=== PATIENT | female | born 1970 | race Caucasian/White ===

== ENCOUNTER 2016-09-24 12:43 | Emergency (ER) | payer OTHER, SELFPAY ==
[2016-09-24 12:50] VITALS: BP 117/85; PULSE 87; RESP 18; TEMP 98; O2SAT 99
[2016-09-24] MEDS ORDERED: Sodium Chloride 0.9% 1,000 ML IV STA (13:23)
--- NOTE | 2016-09-24 13:30 | ED PDOC ---
HPI: Abdomen Time Seen by Provider: 09/24/16 13:05 Chief Complaint (Nursing): GI Problem Chief Complaint (Provider): ABDOMINAL PAIN History Per: Patient (46 Y/O FEMALE WITH LOWER ABDOMINAL PAIN ASSOCIATED WITH CONSTIPATION YESTERDAY. NO VOMITING/DIARRHEA/FEVERS/CHILLS. NO H/O ABDOMINAL SURGERIES. NO VOMITING. HAS HAD ADDITIONAL EYE DISCHARGE NOTED IN RIGHT EYE AND THEN LEFT EYE SINCE THIS MORNING. ) Past Medical History Reviewed: Historical Data, Nursing Documentation, Vital Signs Vital Signs: Last Vital Signs Temp 98 F 09/24/16 12:46 Pulse 87 09/24/16 12:46 Resp 18 09/24/16 12:46 BP 117/85 09/24/16 12:46 Pulse Ox 99 09/24/16 13:31 - Medical History PMH: Asthma, Diabetes - Family History Family History: States: No Known Family Hx - Home Medications Home Medications: Ambulatory Orders Medication Instructions Recorded Albuterol HFA [Ventolin HFA 90 2 puff IH [id number] PRN #60 puff 06/14/15 mcg/actuation (8 g)] Prednisone 40 mg PO DAILY 3 Days 06/14/15 Ibuprofen [Motrin] 600 mg PO Q6 #20 tab 09/12/15 Oseltamivir [Tamiflu] 75 mg PO BID 5 Days 09/12/15 Docusate [Colace] 100 mg PO BID #20 cap 09/24/16 Phosphate Enema [Fleet Enema 135 135 ml RC ONCE PRN #1 nma 09/24/16 Ml] Polymyxin/Trimethoprim Sulfate 1 drop BOTHEYES Q3 #1 bottle 09/24/16 [Polytrim Ophth Soln] - Allergies Allergies/Adverse Reactions: Allergies Allergy/AdvReac Type Severity Reaction Status Date / Time No Known Allergies Allergy Verified 09/12/15 15:55 Review of Systems ROS Statement: Except As Marked, All Systems Reviewed And Found Negative Eyes: Positive for: Other (EYE DISCHARGE) Gastrointestinal: Positive for: Abdominal Pain, Constipation Physical Exam - Reviewed Nursing Documentation Reviewed: Yes Vital Signs Reviewed: Yes - Physical Exam Appears: Positive for: Well, Non-toxic, No Acute Distress Head Exam: Positive for: ATRAUMATIC, NORMAL INSPECTION, NORMOCEPHALIC Skin: Positive for: Normal Color, Warm, DRY Eye Exam: Positive for: EOMI, Normal appearance, PERRL ENT: Positive for: Normal ENT Inspection Neck: Positive for: Normal, Painless ROM Cardiovascular/Chest: Positive for: Regular Rate, Rhythm Respiratory: Positive for: CNT, Normal Breath Sounds Gastrointestinal/Abdominal: Positive for: Normal Exam, Bowel Sounds, Soft, Tenderness (MINIMAL TENDERNESS NOTED PERIUMBILICAL. ) Back: Positive for: Normal Inspection Extremity: Positive for: Normal ROM Neurologic/Psych: Positive for: Alert, Oriented - Laboratory Results Result Diagrams: 09/24/16 13:46 09/24/16 13:46 Urine POC: Negative - ECG O2 Sat by Pulse Oximetry: 99 - Progress ED Course And Treament: OBSTRUCTIVE SERIES: MODERATE CONSTIPATION Disposition - Clinical Impression Clinical Impression: Constipation - Patient ED Disposition Is Patient to be Admitted: No - Disposition Referrals: Fredy Higgins MD [Staff Provider] - Disposition: Routine/Home Disposition Time: 15:32 Condition: FAIR Prescriptions: Docusate [Colace] 100 mg PO BID #20 cap Phosphate Enema [Fleet Enema 135 Ml] 135 ml RC ONCE PRN #1 nma PRN Reason: Constipation Polymyxin/Trimethoprim Sulfate [Polytrim Ophth Soln] 1 drop BOTHEYES Q3 #1 bottle Instructions: Conjunctivitis (ED), Constipation (DC), High Fiber Diet (ED) Print Language: BANGLADESHI
[2016-09-24 13:50] LABS: BASO # 0.1 K/uL (0.0-0.2); BASO % 0.7 % (0.0-2.0); EOS # 0.1 K/uL (0.0-0.7); EOS % 0.7 % (0.0-4.0); HEMATOCRIT 39.7 % (34.0-47.0); LYMPH # 2.1 K/uL (1.0-4.3); LYMPH % 22.2 % (20.0-40.0); MEAN CELL VOLUME 92.5 fl (81.0-99.0); MEAN CORPUSCULAR HEMOGLOBIN 31.1 pg (27.0-31.0); MEAN CORPUSCULAR HGB CONC 33.6 g/dL (33.0-37.0); MEAN PLATELET VOLUME 8.8 fl (7.2-11.7); MONO # 0.8 K/uL (0.0-0.8); MONO % 8.8 % (0.0-10.0); NEUT # 6.3 K/uL (1.8-7.0); NEUT % 67.6 % (50.0-75.0); RED CELL DISTRIBUTION WIDTH 14.2 % (11.5-14.5); WHITE BLOOD COUNT 9.3 K/uL (4.8-10.8)
[2016-09-24 14:11] LABS: ALB/GLOB RATIO 1.1 (1.0-2.1); ALKALINE PHOSPHATASE 61 U/L (38-126); ALT/SGPT 56 U/L (9-52); AST/SGOT 40 U/L (14-36); BILIRUBIN,TOTAL 0.3 mg/dl (0.2-1.3); BLOOD UREA NITROGEN 13 mg/dl (7-17); CALCIUM 9.6 mg/dL (8.4-10.2); CARBON DIOXIDE 25 mmol/L (22-30); CHLORIDE 103 mmol/L (98-107); GFR AFRICAN-AMERICAN > 60; GLUCOSE,RANDOM 74 mg/dL (65-105); LIPASE 160 U/L (23-300); SODIUM 143 mmol/l (132-148); TOTAL PROTEIN 8.2 G/DL (6.3-8.2)
[2016-09-24 14:15] LABS: RBC URINE 4 /hpf (0-3); RENAL EPITHELIAL < 1 /hpf (0-3); URINE BILIRUBIN NEGATIVE (NEGATIVE); URINE BLOOD SMALL (NEGATIVE); URINE COLOR YELLOW (YELLOW); URINE GLUCOSE (UA) NEG (Normal); URINE KETONE NEGATIVE (NEGATIVE); URINE LEUKOCYTE ESTERASE NEG Leu/uL (Negative); URINE PROTEIN NEGATIVE (NEGATIVE); URINE UROBILINOGEN 0.2-1.0 mg/dL (0.2-1.0); WBC URINE 3 /hpf (0-5)
--- NOTE | 2016-09-24 14:34 | RAD ---
PROCEDURE: Radiographs of the chest and abdomen (obstructive series) HISTORY: ABDOMINAL PAIN COMPARISON: Chest x-ray performed 06/14/15 FINDINGS: CHEST: The cardiomediastinal silhouette appears within normal limits of size. No focal consolidation, significant pleural effusion, or definite pneumothorax identified.Please note that chest x-ray has limited sensitivity for the detection of pulmonary masses. ABDOMEN AND PELVIS: Nonspecific bowel gas pattern without findings to suggest obstruction. Moderate constipation. No definite free air. IMPRESSION: Moderate constipation.
== END 2016-09-24 16:00 | disposition home or self-care (01) ==
LOC: H.ER 12:43
DX: K59.00 Constipation, unspecified (principal); E11.9 Type 2 diabetes mellitus without complications